=== PATIENT | male | born 1980 | race Caucasian/White ===

== ENCOUNTER 2017-11-23 21:31 | Emergency (ER) | payer SELFPAY, OTHER, MEDICAID ==
[2017-11-23] MEDS: DIPHTH/TET/ACEL PERTUSS (ADULT) 0.5 ML VIAL IM* (23:29)
[2017-11-24] MEDS: BENOXINATE/FLUORESCEIN DROPS BOTH EYES (01:21)
[2017-11-24] MEDS ORDERED: SODIUM CHLORIDE 0.9% 1L IRRIG IRR (01:30)
== END 2017-11-24 01:53 | disposition home or self-care (01) ==
LOC: FTE 11-24 01:53
DX: T15.11XA Foreign body in conjunctival sac, right eye, initial encounter (principal); F17.210 Nicotine dependence, cigarettes, uncomplicated; X58.XXXA Exposure to other specified factors, initial encounter; Y92.9 Unspecified place or not applicable; Z23 Encounter for immunization
CPT/HCPCS: 65205; 90471; 90715; 99283-25